=== PATIENT | male | born 1975 | race Two or more races ===

== ENCOUNTER 2021-04-16 13:46 | Emergency (ER) | payer SELFPAY ==
[~2021-04-16] VITALS: Ht 190.5 cm; Wt 90.7 kg
[2021-04-16 18:29] VITALS: BP 136/78
== END 2021-04-16 17:50 | disposition home or self-care (01) ==
LOC: ER 13:46
DX: S80.12XA Contusion of left lower leg, initial encounter (principal); Z88.6 Allergy status to analgesic agent; Z88.8 Allergy status to other drugs, medicaments and biological substances; W22.8XXA Striking against or struck by other objects, initial encounter; Y93.89 Activity, other specified; Y92.89 Other specified places as the place of occurrence of the external cause; Y99.8 Other external cause status
CPT/HCPCS: 93971